=== PATIENT | male | born 1960 | race Caucasian/White ===

== ENCOUNTER 2018-03-08 08:52 | Day surgery (SDC) | payer OTHER ==
[2018-03-08] MEDS ORDERED: LACTATED RINGERS 1,000 ML IV ONE (08:58)
[2018-03-08] MEDS ORDERED: MIDAZOLAM 2 MG/2 ML VIAL IVP ONE (09:54)
[2018-03-08] MEDS ORDERED: fentaNYL 250 MCG/5 ML VIAL IVP ONE (09:54)
[2018-03-08 10:29] VITALS: BP 120/76
== END 2018-03-08 08:53 | disposition home or self-care (01) ==
LOC: SDS 08:52
PROVIDERS: ATTEND Surgery
PROC: 0DBP8ZX Excision of Rectum, Via Natural or Artificial Opening Endoscopic, Diagnostic (ICD-10-PCS; principal; 2018-03-08 10:00)
DX: Z12.11 Encounter for screening for malignant neoplasm of colon (principal); K62.1 Rectal polyp; F17.210 Nicotine dependence, cigarettes, uncomplicated; K75.9 Inflammatory liver disease, unspecified
CPT/HCPCS: 45385; J3010; J7120; 88305

== ENCOUNTER 2018-03-25 03:34 | Outpatient (CLI) | payer OTHER | END 2018-03-25 03:35 | disposition short-term general hospital (02) | LOC: EMS 03:34 | PROVIDERS: ATTEND Surgery | DX: R07.9 Chest pain, unspecified (principal) | CPT/HCPCS: A0425; A0427 ==

== ENCOUNTER 2018-05-23 21:34 | Emergency (ER) | payer OTHER ==
[2018-05-23 22:06] LABS: BASOPHILS # (AUTO) 0.1 10^3/uL (0.0-0.1); BASOPHILS % (AUTO) 0.9 %; EOSINOPHILS # (AUTO) 0.5 10^3/uL (0.0-0.7); HGB - HEMOGLOBIN 13.9 g/dL (14.0-18.0); LYMPHOCYTES # (AUTO) 2.3 10^3/uL (1.5-3.5); LYMPHOCYTES % (AUTO) 24.8 %; MEAN CORPUSCULAR HEMOGLOBIN 29.7 pg (27.0-31.0); MEAN CORPUSCULAR HGB CONC 33.3 g/dL (32.0-36.0); MEAN CORPUSCULAR VOLUME 89.2 fL (80.0-94.0); MEAN PLATELET VOLUME 8.8 fL (7.4-11.4); MONOCYTES # (AUTO) 0.7 10^3/uL (0.0-1.0); MONOCYTES % (AUTO) 7.7 %; NEUTROPHILS # (AUTO) 5.8 10^3/uL (1.5-6.6); NEUTROPHILS % (AUTO) 61.6 %; PLT - PLATELET COUNT 258 10^3/uL (130-450); RED BLOOD COUNT 4.68 10^6/uL (4.70-6.10); RED CELL DISTRIBUTION WIDTH 13.6 % (12.0-15.0); WHITE BLOOD COUNT 9.4 x10^3/uL (4.8-10.8)
[2018-05-23 22:18] LABS: ALBUMIN 4.2 g/dL (3.2-5.5); ALBUMIN/GLOBULIN RATIO 1.2 (1.0-2.2); BILIRUBIN,TOTAL 0.6 mg/dL (0.2-1.0); CALCIUM 9.1 mg/dL (8.5-10.3); CREATININE 1.2 mg/dL (0.6-1.2); TOTAL PROTEIN 7.7 g/dL (6.7-8.2)
[2018-05-23] MEDS ORDERED: SODIUM CHLORIDE 0.9% 1,000 ML IV ONE (22:29)
[2018-05-23] MEDS ORDERED: HYDROcod/ACETAM 5/325 MG TABLET PO STA (22:29)
--- NOTE | 2018-05-23 22:39 | ED Physician Documentation ---
History of Present Illness - Stated complaint Stated Complaint: HEADACHE/HIGH BP - Chief complaint Chief Complaint: Cardiac - History obtained from History obtained from: Patient, Family - History of Present Illness Timing: Today - Additonal information Additional information: 57 year old male who is 5 weeks status post CABG has developed elevated blood pressure and headache today. He states that he felt off and check his blood pressure and noted the diastolic of 127. He called the nurse line the instructed him to come to the emergency department. The patient denies specifically any chest pain associated with this but he states that he does have a significant headache and feels a bit nauseous as well. He states that he has been recovering from his bypass operation and walking daily and he has not had any decrease in his stamina or change in his exertional capacity. He is walking about half a mile per day and he has a lot of pain in the incisions as she has been out of pain medicine for about 2 weeks. He did go through his follow-up 30 day appointment and did well at that he will not see a rescue instructor until the end of June. He does indicate when asked that he has not been drinking any significant quantities of fluids and did not feel that he was sweating much. Average daily temperature is been about 75. Review of Systems Constitutional: denies: Fever, Chills Eyes: denies: Decreased vision Ears: denies: Loss of hearing Throat: denies: Sore throat Cardiac: reports: Chest pain / pressure. denies: Palpitations, Pedal edema, Calf pain Respiratory: denies: Dyspnea, Cough, Wheezing GI: reports: Nausea. denies: Abdominal Pain, Vomiting : denies: Dysuria, Frequency Skin: denies: Rash Musculoskeletal: denies: Neck pain, Back pain, Extremity pain Neurologic: reports: Headache. denies: Generalized weakness, Focal weakness, Numbness, Head injury, LOC PD PAST MEDICAL HISTORY - Past Medical History Cardiovascular: None Respiratory: None Endocrine/Autoimmune: HyPOthyroidism GI: Colon polyps : None HEENT: None Psych: None Musculoskeletal: None Derm: None - Past Surgical History Past Surgical History: Yes General: Appendectomy, Colonoscopy - Present Medications Home Medications: Ambulatory Orders Medication Instructions Recorded Confirmed Levothyroxine Sodium 50 mcg PO DAILY 03/07/18 03/08/18 Aspirin 05/23/18 05/23/18 Atorvastatin [Lipitor] 07/23/18 Folic Acid 05/23/18 Metoprolol Succinate [Toprol Xl] 05/23/18 HYDROcod/ACETAM 5/325 [[place] 5/325] 1 - 2 ea PO Q6H PRN #15 tablet 05/24/18 - Allergies Allergies/Adverse Reactions: Allergies Allergy/AdvReac Type Severity Reaction Status Date / Time No Known Drug Allergies Allergy Verified 05/23/18 21:42 - Social History Does the pt smoke?: Yes Smoking Status: Current every day smoker Does the pt drink ETOH?: No Does the pt have substance abuse?: No - Immunizations Immunizations are current?: Yes - POLST Patient has POLST: No PD ED PE NORMAL - Vitals Vital signs reviewed: Yes (hypertensive mild ) - General General: Alert and oriented X 3, No acute distress, Well developed/nourished - HEENT HEENT: Atraumatic, PERRL, EOMI, Ears normal - Neck Neck: Supple, no meningeal sign, No bony TTP - Cardiac Cardiac: RRR, No murmur - Respiratory Respiratory: No respiratory distress, Clear bilaterally, Other (There is marked chest wall tenderness to healing surgical wounds ) - Abdomen Abdomen: Soft, Non tender - Back Back: No CVA TTP, No spinal TTP - Derm Derm: Normal color, Warm and dry, No rash - Extremities Extremities: No deformity, No edema - Neuro Neuro: No motor deficit, No sensory deficit Eye Opening: Spontaneous Motor: Obeys Commands Verbal: Oriented GCS Score: 15 - Psych Psych: Normal mood, Normal affect Results - Vitals Vitals: Vital Signs - 24 hr 05/23/18 05/23/18 05/23/18 21:38 22:37 23:34 Temperature 36.5 C Heart Rate 60 63 63 Respiratory 18 18 19 Rate Blood Pressure 163/82 H 154/85 H 143/88 H Blood Pressure 154/58 H [Right] O2 Saturation 97 98 97 05/24/18 00:16 Temperature 36.7 C Heart Rate 65 Respiratory 17 Rate Blood Pressure 144/89 H Blood Pressure [Right] O2 Saturation 97 Oxygen O2 Source Room air - EKG (time done) 2248 Rate: Rate (enter#) (54) Rhythm: NSR, LAE [place]: LAD Ischemia: Non specific changes (T wave inversions in V1 and V2 ) Compare to prior EKG: Old EKG unavailable Computer interpretation: Disagree with computer (I do not see ST elevations in inferior leads. ) - Labs Labs: Laboratory Tests 05/23/18 05/23/18 05/23/18 22:01 22:01 22:01 WBC 9.4 RBC 4.68 L Hgb 13.9 L Hct 41.7 L MCV 89.2 MCH 29.7 MCHC 33.3 RDW 13.6 Plt Count 258 MPV 8.8 Neut # (Auto) 5.8 Lymph # (Auto) 2.3 [place] # (Auto) 0.7 Eos # (Auto) 0.5 Baso # (Auto) 0.1 Absolute Nucleated RBC 0.00 Nucleated RBC % 0.0 Sodium 136 Potassium 4.0 Chloride 102 Carbon Dioxide 25 Anion Gap 9.0 BUN 18 Creatinine 1.2 Estimated GFR (MDRD) 62 L Glucose 103 H Calcium 9.1 Total Bilirubin 0.6 AST 18 ALT 34 Alkaline Phosphatase 62 Troponin I < 0.04 Total Protein 7.7 Albumin 4.2 Globulin 3.5 Albumin/Globulin Ratio 1.2 Lipase 39 - Rads (name of study) 2 veiw chest Radiology: Prelim report reviewed (Impression: No acute intrathoracic plain film abnormality.), EMP read indepedently, See rad report Procedures - IVC sono (time) 2024 Bedside IVC sono: IVC measures (cm) (1.2), IVC collapsed c insp (cm) (complete) , Dehydration (est 1 liter deficit) PD MEDICAL DECISION MAKING - ED course Complexity details: reviewed old records, reviewed results, re-evaluated patient , considered differential, d/w patient, d/w family ED course: 57-year-old male 6 weeks status post CABG has elevated blood pressure and he is found to be dehydrated. He is administered saline blood pressure normalizes and he feels well. He does have chest wall pain that is restricting his ability to move about. He appears to have had some sub- fornical organ dysfunction with reflex elevation of the blood pressure secondary to volume depletion but with failure of the organism to seek fluids. - Sepsis Event Vital Signs: Vital Signs - 24 hr 05/23/18 05/23/18 05/23/18 21:38 22:37 23:34 Temperature 36.5 C Heart Rate 60 63 63 Respiratory 18 18 19 Rate Blood Pressure 163/82 H 154/85 H 143/88 H Blood Pressure 154/58 H [Right] O2 Saturation 97 98 97 05/24/18 00:16 Temperature 36.7 C Heart Rate 65 Respiratory 17 Rate Blood Pressure 144/89 H Blood Pressure [Right] O2 Saturation 97 Oxygen O2 Source Room air Departure - Departure Disposition: 01 Home, Self Care Clinical Impression: Dehydration, Chest wall pain following surgery Condition: Stable Instructions: ED Chest Pain Costochondritis, ED Dehydration Follow-Up: JOSÉ MANUEL FLORES [Primary Care Provider] - Prescriptions: HYDROcod/ACETAM 5/325 [[place] 5/325] 1 - 2 ea PO Q6H PRN #15 tablet PRN Reason: Pain Discharge Date/Time: 05/24/18 00:27
--- NOTE | 2018-05-23 22:57 | XRAY Report ---
Procedure Date: 05/23/2018 Accession Number: [id number] / [id number] Procedure: XR - Chest 2 View X-Ray CPT Code: 14985 FULL RESULT: EXAM: CHEST RADIOGRAPHY EXAM DATE: 05/23/2018 10:51 PM. CLINICAL HISTORY: Chest pain. COMPARISON: XR CHEST PA AND LAT 03/09/2010. TECHNIQUE: 2 views. FINDINGS: Lungs/Pleura: There is some reticular opacity within the left midlung which could represent atelectasis or scarring. No evidence of lobar infiltrate. No evidence of lung edema. No pneumothorax. Mediastinum: Mild cardiomegaly. Patient has undergone median sternotomy. Other: None. IMPRESSION: No acute intrathoracic plain film abnormality. RADIA
[2018-05-24 00:16] VITALS: BP 144/89
== END 2018-05-24 00:27 | disposition home or self-care (01) ==
LOC: ED 21:34
DX: E86.0 Dehydration (principal); R07.89 Other chest pain; Z95.1 Presence of aortocoronary bypass graft; Z79.82 Long term (current) use of aspirin; F17.200 Nicotine dependence, unspecified, uncomplicated
CPT/HCPCS: 36415; 71046; 80053; 83690; 84484; 85025; 93005; 96360; 99283; 99284; A9270

== ENCOUNTER 2018-07-31 19:01 | Emergency (ER) | payer OTHER ==
[2018-07-31] MEDS ORDERED: cloNIDine 0.1 MG TABLET PO STA (19:26)
--- NOTE | 2018-07-31 19:30 | ED Physician Documentation ---
History of Present Illness - Stated complaint Stated Complaint: HBP - Chief complaint Chief Complaint: General - History obtained from History obtained from: Patient, Family - History of Present Illness Timing: Today (57-year-old gentleman with history of hypertension, takes metoprolol twice daily and losartan once a day. He started to feel a little off and headachy. He took his blood pressure which was 150/90 which is high for him. He started to repeatedly take his blood pressure and went up to about 200/100. He took an extra dose of losartan and was advised to come in by a telemedicine physician. He denies chest pain or trouble breathing. No severe headache.) Review of Systems Constitutional: denies: Fever, Chills Cardiac: denies: Chest pain / pressure, Palpitations Respiratory: denies: Dyspnea, Cough PD PAST MEDICAL HISTORY - Past Medical History Cardiovascular: None Respiratory: None Neuro: None Endocrine/Autoimmune: HyPOthyroidism GI: Colon polyps : None HEENT: None Psych: None Musculoskeletal: None Derm: None - Past Surgical History Past Surgical History: Yes General: Appendectomy, Colonoscopy Cardiovascular: CABG - Present Medications Home Medications: Ambulatory Orders Medication Instructions Recorded Confirmed Levothyroxine Sodium 50 mcg PO DAILY 03/07/18 03/08/18 Aspirin 1 tab PO DAILY 05/23/18 05/23/18 Atorvastatin [Lipitor] 1 tab PO DAILY 05/23/18 Metoprolol Succinate [Toprol Xl] 1 tab PO BID 05/23/18 Losartan [Cozaar] 1 tab PO DAILY 07/31/18 07/31/18 - Allergies Allergies/Adverse Reactions: Allergies Allergy/AdvReac Type Severity Reaction Status Date / Time No Known Drug Allergies Allergy Verified 07/31/18 19:10 - Social History Does the pt smoke?: Yes Smoking Status: Current every day smoker Does the pt drink ETOH?: No Does the pt have substance abuse?: No - Immunizations Immunizations are current?: Yes - POLST Patient has POLST: No PD ED PE NORMAL - Vitals Vital signs reviewed: Yes - General General: Alert and oriented X 3, No acute distress - HEENT HEENT: PERRL, EOMI - Neck Neck: Supple, no meningeal sign, No bony TTP - Cardiac Cardiac: RRR, No murmur - Respiratory Respiratory: No respiratory distress, Clear bilaterally - Abdomen Abdomen: Non tender - Extremities Extremities: No edema, No calf tenderness / cord - Neuro Neuro: Alert and oriented X 3, Normal speech Results - Vitals Vitals: Vital Signs - 24 hr 07/31/18 19:06 Temperature 36.4 C L Heart Rate 55 L Respiratory 16 Rate Blood Pressure 186/80 H O2 Saturation 97 Oxygen O2 Source Room air - EKG (time done) 1933 Rate: Rate (enter#) (56) Rhythm: NSR [place]: LAD Intervals: Normal [place] QRS: Normal Ischemia: Non specific changes Computer interpretation: Agree with computer PD MEDICAL DECISION MAKING - ED course ED course: 57-year-old gentleman with history of hypertension presents with elevated blood pressures. He has a benign exam and no changes on his EKG. After 0.2 mg of clonidine he had calm down a bit and his blood pressure was 140/80. 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 - Sepsis Event Vital Signs: Vital Signs - 24 hr 07/31/18 19:06 Temperature 36.4 C L Heart Rate 55 L Respiratory 16 Rate Blood Pressure 186/80 H O2 Saturation 97 Oxygen O2 Source Room air Departure - Departure Disposition: 01 Home, Self Care Clinical Impression: Hypertension Qualifiers: Hypertension type: essential hypertension Qualified Code(s): I10 - Essential (primary) hypertension Condition: Good Record reviewed to determine appropriate education?: Yes Instructions: ED HTN Established Comments: Increase your losartan to twice daily and follow-up with your convex grinder operator. Return if worse.
[2018-07-31 20:18] VITALS: BP 156/93
--- NOTE | 2018-08-01 21:06 | ED Physician Documentation ---
ED Addendum - Addendum Addendum: 08/01/18 21:05 Called in, he was still having blood pressures about 170/90. Asymptomatic, he is just worried about it. Specifically no chest pain, trouble breathing, headache. I offered to have him come back for reevaluation. He requested that I call in the prescription that we gave him last night. He was given clonidine last night. I called this in the right 8, clonidine 0.1 mg p.o. 3 times daily #90.
== END 2018-07-31 20:20 | disposition home or self-care (01) ==
LOC: ED 19:01
DX: I10 Essential (primary) hypertension (principal); E03.9 Hypothyroidism, unspecified; F17.200 Nicotine dependence, unspecified, uncomplicated; Z95.1 Presence of aortocoronary bypass graft
CPT/HCPCS: 93005; 99283; A9270

== ENCOUNTER 2021-07-02 17:05 | Outpatient (CLI) | payer OTHER ==
--- NOTE | 2021-07-03 10:13 | XRAY Report ---
PROCEDURE: Shoulder 2 View LT INDICATIONS: SPRAIN OF L SHOULDER JOINT TECHNIQUE: 2 views of the shoulder were acquired. COMPARISON: None. FINDINGS: Bones: No fractures or dislocations. No suspicious bony lesions. Visualized ribs appear intact. Soft tissues: No suspicious soft tissue calcifications. IMPRESSION: No visualized acute fracture or dislocation. However, occult injury cannot be excluded. Recommend short interval imaging follow-up in 7-10 days as clinically indicated for additional evalua tion. Reviewed by: Tricia Viera MD on 07/03/2021 10:11 AM PDT Approved by: Tricia Viera MD on 07/03/2021 10:11 AM PDT Station ID: [id number]
== END 2021-07-02 23:59 | disposition home or self-care (01) ==
LOC: DI.N 17:05
PROVIDERS: ATTEND Nurse Practitioner
DX: S43.402A Unspecified sprain of left shoulder joint, initial encounter (principal)